=== PATIENT | male | born 1995 | race Caucasian/White ===

== ENCOUNTER 2016-10-12 17:05 | Emergency (ER) | payer MEDICAID ==
[~2016-10-12] VITALS: Ht 175.3 cm; Wt 91.0 kg
[~2016-10-12 17:05] MED LIST: NO MEDS; ONDA4TAB35 PO
[2016-10-12 17:10] VITALS: Ht 175.3 cm; Wt 91.0 kg
--- NOTE | 2016-10-12 17:23 | EN ---
Date/Time of Note Date/Time of Note DATE: 10/12/16 TIME: 17:18 ER Progress Note This is a 21-year-old male presenting to the emergency department complaining of right buttock and low back pain for the past week. Patient states that the pain started in his right buttock region about 1 week ago and then it started to radiate down his leg. This morning when he woke up he started to have severe 8 out of 10 lower back pain with genital numbness, right lower extremity numbness and his left lower extremity is tingling. Patient admits to having bladder incontinence. ROS: 10 systems reviewed and are negative except as per history of present illness. GENERAL: WD/WN, in no apparent distress, non-toxic appearing HENT: NC/AT EYES: Conjunctiva normal NECK: Supple PULM: Normal labored breathing CV: Good capillary refill GI: Non-distended, no guarding BACK: no deformities noted, normal spinal curvature, TTP on lumbar region R>L, tender on lumbar spine midline, positive straight leg raise *Anal wink is not assessed since patient was examined and RME EXT: No clubbing, cyanosis, or edema NEURO: Moves on all fours, sensation intact, normal gait SKIN: intact PSYCH: Normal mood Patient was evaluated RME, I had a concern for cauda equina syndrome therefore I have consulted my supervising physician . Patient will be transferred to ER1 for further evaluation and management and MRI. YANIRA AUGUSTE PA-C Oct 12, 2016 17:23
[2016-10-12] MEDS ORDERED: SOD CHLORIDE 0.9% 1,000 ML IV STA (18:31)
[2016-10-12 18:57] LABS: ADD SCAN DIFF NO
[2016-10-12 18:58] LABS: BASOPHILS % 0.3 % (0.0-2.0); EOSINOPHILS # 0.1 10^3/ul (0.0-0.5); EOSINOPHILS % 0.6 % (0.0-7.0); HEMATOCRIT 47.1 % (42.0-52.0); HEMOGLOBIN 16.6 g/dl (14.0-18.0); LYMPHOCYTES # 1.9 10^3/ul (0.8-2.9); LYMPHOCYTES % 19.4 % (15.0-51.0); MEAN CORPUSCULAR HEMOGLOBIN 29.9 pg (29.0-33.0); MEAN CORPUSCULAR HGB CONC 35.2 g/dl (32.0-37.0); MEAN CORPUSCULAR VOLUME 84.7 fl (82.0-101.0); MEAN PLATELET VOLUME 9.6 fl (7.4-10.4); MONOCYTE # 0.9 10^3/ul (0.3-0.9); MONOCYTES % 8.8 % (0.0-11.0); NEUTROPHIL # 6.9 10^3/ul (1.6-7.5); NEUTROPHILS % 70.7 % (39.0-77.0); PLATELET COUNT 237 10^3/UL (140-415); RED BLOOD COUNT 5.56 10^6/ul (4.70-6.10); RED CELL DISTRIBUTION WIDTH 11.7 % (11.5-14.5); WHITE BLOOD COUNT 9.7 10^3/ul (4.8-10.8)
[2016-10-12 19:12] LABS: INR 0.95; PROTIME 12.7 Sec (12.2-14.2)
[2016-10-12 19:21] LABS: ALANINE AMINOTRANSFERASE 46 IU/L (13-69); ALBUMIN 4.8 g/dl (3.3-4.9); ALBUMIN/GLOBULIN RATIO 1.26; ALKALINE PHOSPHATASE 102 IU/L (42-121); ANION GAP 15 (8-16); ASPARTATE AMINO TRANSFERASE 33 IU/L (15-46); BILIRUBIN,INDIRECT 0.2 mg/dl (0-1.1); BILIRUBIN,TOTAL 0.2 mg/dl (0.2-1.3); BLOOD UREA NITROGEN 14 mg/dl (7-20); CALCIUM 9.7 mg/dl (8.4-10.2); CARBON DIOXIDE 26 mmol/L (21-31); CHLORIDE 101 mmol/L (97-110); CREATININE 1.11 mg/dl (0.61-1.24); GLUCOSE 103 mg/dl (70-220); POTASSIUM 3.8 mmol/L (3.5-5.1); SODIUM 138 mmol/L (135-144); TOTAL PROTEIN 8.6 g/dl (6.1-8.1)
[2016-10-12 19:34] LABS: TROPONIN-I < 0.012 ng/ml (0.00-0.12)
[2016-10-12] MEDS ORDERED: KETOROLAC 15 MG INJ IV STA (20:15)
--- NOTE | 2016-10-12 20:19 | ERA ---
ER Documentation Chief Complaint Date/Time DATE: 10/12/16 TIME: 20:11 Chief Complaint 8/10 lower back pain x 1 week HPI 21-year-old man complains of 1 week of low back pain radiating down both legs and paresthesias to the extremities. He states symptoms began a few days after lifting heavy weights while at the gym. He states over the last days symptoms have gotten worse and is developed weakness to the right foot and cannot feel himself urinate although he denies loss of bowel or bladder control. He denies fevers or chills, no direct trauma to the back, no chest pain or shortness of breath, no difficulty ambulating, no headache or blurry vision. Patient also states he does have a history of low back pain although never as severe as this weeks episode and never associated with paresthesias. ROS All systems reviewed and are negative except as per history of present illness. Medications Home Meds Active Scripts Ondansetron Hcl* (Zofran* ODT) 4 mg -ODT Tab.disper, 4 MG PO Q6 Y for NAUSEA AND /OR VOMITING, #10 TAB Prov:JELENA SOSA DO 10/21/15 Reported Medications [No Meds] No Conflict Check 04/25/12 [None] No Conflict Check 08/12/10 Allergies Allergies: Coded Allergies: No Known Drug Allergies (Verified Allergy, Mild, 10/21/15) PMhx/Soc Anxiety Medical and Surgical Hx: pt denies Medical Hx, pt denies Surgical Hx History of Surgery: No Anesthesia Reaction: No Hx Neurological Disorder: No Hx Respiratory Disorders: No Hx Cardiac Disorders: No Hx Psychiatric Problems: No Hx Miscellaneous Medical Probl: No Hx Alcohol Use: Yes Hx Substance Use: Yes (Possible Mushroom use ) Hx Tobacco Use: No Smoking Status: Never smoker FmHx Family History: No diabetes Physical Exam Vitals Vital Signs Date Time Temp Pulse Resp B/P Pulse Ox O2 Delivery O2 Flow Rate FiO2 10/12/16 18:20 98.7 120 18 158/99 98 Room Air 10/12/16 17:10 98.7 130 18 134/76 99 Physical Exam GENERAL: Well-developed, well-nourished, well-hydrated, in no apparent distress , looks nontoxic in appearance HEENT: Moist mucous membranes, pink conjunctiva, no cervical spine tenderness or step-off deformities, no goiter, no jaundice or icterus, extraocular movements intact without pain. No submandibular induration, and no pharyngeal erythema NEURO: Alert and oriented 3, cranial nerves II through XII intact bilaterally, pupils equal round reactive to light, patient has 4/5 strength to right dorsiflexion versus 5/5 to the left, sensation to the perianal area is intact but the patient states sensation to the right posterior buttock is decreased compared to the left. CARDIAC: Regular rate and rhythm, no murmurs rubs or gallops LUNGS: Clear bilaterally no wheezing crackles or stridor ABDOMEN: Soft nontender, no guarding, no rigidity, no rebound, no psoas sign no obturator sign. Normoactive bowel sounds SKIN: Warm and dry to touch, no abrasions, contusions, or hematomas, no lacerations, no ecchymosis, no target lesions, and without ulcers EXTREMITIES: No clubbing cyanosis or edema, calves are bilaterally symmetrical, no Homans sign, no popliteal cord sign. Distal pulses equal and bilateral PSYCH: Normal affect without agitation or irritability Result Diagram: 10/12/16184410/12/161844 Results 24 hrs Laboratory Tests Test 10/12/16 18:45 White Blood Count 9.710^3/ul Red Blood Count 5.5610^6/ul Hemoglobin 16.6g/dl Hematocrit 47.1% Mean Corpuscular Volume 84.7fl Mean Corpuscular Hemoglobin 29.9pg Mean Corpuscular Hemoglobin Concent 35.2g/dl Red Cell Distribution Width 11.7% Platelet Count 87478^3/UL Mean Platelet Volume 9.6fl Neutrophils % 70.7% Lymphocytes % 19.4% Monocytes % 8.8% Eosinophils % 0.6% Basophils % 0.3% Nucleated Red Blood Cells % 0.0/100WBC Neutrophils # 6.910^3/ul Lymphocytes # 1.910^3/ul Monocytes # 0.910^3/ul Eosinophils # 0.110^3/ul Basophils # 0.010^3/ul Nucleated Red Blood Cells # 0.010^3/ul Prothrombin Time 12.7Sec Prothrombin Time Ratio 1.0 INR International Normalized Ratio 0.95 Sodium Level 138mmol/L Potassium Level 3.8mmol/L Chloride Level 101mmol/L Carbon Dioxide Level 26mmol/L Anion Gap 15 Blood Urea Nitrogen 14mg/dl Creatinine 1.11mg/dl Glucose Level 103mg/dl Calcium Level 9.7mg/dl Total Bilirubin 0.2mg/dl Direct Bilirubin 0.00mg/dl Indirect Bilirubin 0.2mg/dl Aspartate Amino Transf (AST/SGOT) 33IU/L Alanine Aminotransferase (ALT/SGPT) 46IU/L Alkaline Phosphatase 102IU/L Troponin I < 0.012ng/ml Total Protein 8.6g/dl Albumin 4.8g/dl Globulin 3.80g/dl Albumin/Globulin Ratio 1.26 Lipase 75U/L Current Medications Medications (Trade) Dose Ordered Sig/Bre Route PRN Reason Start Time Stop Time Status Last Admin Dose Admin Sodium Chloride (NS) 1,000 ml @ 1,000 mls/hr Q1H STAT IV 10/12/16 18:31 10/12/16 19:30 DC 10/12/16 18:52 Procedures/MDM IV line was established 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 Patient was afebrile. EKG performed, read by me revealed a sinus tachycardia 123 bpm, normal axis, narrow QRS complex, no concerning ST elevations or depressions noted. I administered 1 L normal saline intravenously and Toradol 15 mg IV for his symptoms. I also ordered stat MRI of the lumbar and sacral back to rule out spinal cord compression versus cauda equina syndrome. Results are pending I will follow-up I consulted the on-call neurosurgeon Dr. Pritchard regarding the patient's presentation and symptomatology, he recommended waiting for MRI results to determine how to proceed. MRI results pending and I will follow-up. CBC and electrolytes are normal, liver function tests are normal, troponin was negative, coagulation profile was normal. Neuro critical Care: Time: 37 minutes, this was time separate from other procedures. Treatments/Evaluations: Close monitoring and treatment of unstable vital signs including tachycardia, cardiorespiratory, and neurologic status, while maintaining tight balance of fluid, repeating neurologic examination at the bedside, and bedside reevaluation's. Disposition pending although most likely admission with neurosurgical consultation. 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
--- NOTE | 2016-10-12 21:30 | RADRPT ---
PROCEDURE: MRI lumbar spine with and without contrast CLINICAL INDICATION: Back pain. Evaluate for spinal cord compression. TECHNIQUE: An MRI of the lumbar spine was performed on a 1.5 mavis scanner utilizing the followin g sequences: pre and post contrast sagittal and axial T1 weighted, sagittal and axial T2 weighted, a nd sagittal T2 weighted with fat saturation. 10 ml of Magnevist were given intravenously without com plication. COMPARISON: No prior MRI for comparison.. FINDINGS: There is a normal lordosis of the lumbar spine. No vertebral body subluxation is evident. The verteb ral bodies are normal in height and signal intensity. There is mild congenital spinal canal narrowin g from L2-L3 through L5-S1 levels. The conus medullaris is visible at the T12 level, and is normal in appearance. The postcontrast images show no abnormal enhancement. T12 - L1: The disk is normal in appearance. The central canal and foramina are adequately patent. L1 - L2: The disk is normal in appearance. The central canal and foramina are adequately patent. L2 - L3: The disk is normal in appearance. Mild congenital central canal stenosis without foraminal stenosis. L3 - L4: The disk is normal in appearance. Mild bilateral facet joint arthropathy with small facet joint effusions. Mild congenital central canal stenosis without foraminal stenosis. L4 - L5: The disk is normal in appearance. Moderate hypertrophic facet joint arthropathy with small to moderate facet joint effusions. Mild to moderate central canal stenosis with mild left foramina l stenosis. No significant right foraminal stenosis. L5 - S1: The disk is normal in appearance. The central canal and foramina are adequately patent. IMPRESSION: 1. No evidence of spinal cord or conus medullaris compression, intramedullary signal abnormality, o r pathologic enhancement. 2. 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 3. Mild multilevel facet joint arthropathy most pronounced at L3-L4 and L4-L5 with mild left forami nal stenosis at L4-L5. 4. No disk protrusion at any level. No paraspinal soft tissue abnormality. RPTAT:AAJJ Angel Marquez Physician Date Time Electronically viewed and signed by Angel Marquez Physician on 10/12/2016 21:30 MARILEE/
[2016-10-12 22:22] LABS: ADD UMIC NO; URINE BILIRUBIN (Dip) NEGATIVE (NEGATIVE); URINE BLOOD (Dip) NEGATIVE (NEGATIVE); URINE COLOR LT. YELLOW (YELLOW); URINE GLUCOSE (Dip) NEGATIVE (NEGATIVE); URINE KETONES (Dip) NEGATIVE (NEGATIVE); URINE LEUKOCYTE ESTERASE (Dip) NEGATIVE (NEGATIVE); URINE NITRITE (Dip) NEGATIVE (NEGATIVE); URINE TOTAL PROTEIN (Dip) NEGATIVE (NEGATIVE); URINE UROBILINOGEN (Dip) 0.2 E.U./dL (0.1-1.0)
--- NOTE | 2016-10-12 22:37 | RADRPT ---
PROCEDURE: MRI sacrum with and without contrast CLINICAL INDICATION: Complaining of low back pain times 1 week, paresthesias TECHNIQUE: An MRI of the sacrum with and without contrast was performed. 10 cc of Magnevist was i njected intravenously without complication. There is breathing motion artifact. COMPARISON: MRI of the lumbar spine of 10/12/2016 FINDINGS: No abnormality is seen. No fracture or dislocation is seen. No abnormal signal intensity is seen. No osseous lesion is seen. No definite abnormality of the sacroiliac joints is seen. No soft tissu e abnormality is seen. IMPRESSION: No abnormality seen as noted above. RPTAT: HJES .Gordon Brunner MD, MD Date Time Electronically viewed and signed by .Gordon Brunner MD, on 10/12/2016 22:37 .S/
[2016-10-12 23:09] LABS: BARBITURATES Negative (NEGATIVE); BENZODIAZEPINES Negative (NEGATIVE); CANNABINOIDS Negative (NEGATIVE); COCAINE Negative (NEGATIVE); OPIATES Negative (NEGATIVE)
[2016-10-12] MEDS ORDERED: TRAM50TA2 PO (23:24)
--- NOTE | 2016-10-12 23:27 | QN ---
Documentation Comment MRI of back and sacrum came back with negative results. Discussed with neurosurgeon on-call. Patient stable for outpatient management. No evidence of saddle anesthesia. Repeat neurological testing was essentially normal with no evidence of footdrop or saddle anesthesia. Patient does not complain of bowel or bladder incontinence. Patient is able to urinate of his own accord while here in the ER. ZACK BURNHAM. Oct 12, 2016 23:27
[2016-10-12 23:30] VITALS: BP 135/99; PULSE 102; RESP 18; TEMP 98.7
[2016-10-12] MEDS ORDERED: ACETAMINOPHEN 325 MG TAB PO ONE (23:30)
== END 2016-10-12 23:56 | disposition home or self-care (01) ==
LOC: FTE 17:05 → E/R 23:56
DX: G95.20 Unspecified cord compression (principal); M51.16 Intervertebral disc disorders with radiculopathy, lumbar region; R40.2142 Coma scale, eyes open, spontaneous, at arrival to emergency department; R40.2252 Coma scale, best verbal response, oriented, at arrival to emergency department; R40.2362 Coma scale, best motor response, obeys commands, at arrival to emergency department
CPT/HCPCS: 72158; 72196; 80053; 80307; 81003; 83690; 84484; 85025; 85610; 93005; J7030; Z7610; 36415

== ENCOUNTER 2016-10-31 19:34 | Emergency (ER) | payer MEDICAID ==
[~2016-10-31] VITALS: Ht 175.3 cm; Wt 85.5 kg
[~2016-10-31 19:34] MED LIST changes: +TRAM50TA2 PO
[2016-10-31 20:01] VITALS: Ht 175.3 cm; Wt 85.5 kg
--- NOTE | 2016-10-31 21:43 | RADRPT ---
PROCEDURE: XR Chest. CLINICAL INDICATION: Chest pain after intercourse. TECHNIQUE: PA and Lateral views of the chest were obtained. COMPARISON: Chest x-ray 05/10/2014. FINDINGS: The soft tissues are normal. The bony elements are normal. The heart, cardiomediastinal silhouette and hilar structures are normal. The pulmonary vasculature is normal. There is a left-sided aorta. The lungs are clear. The costophrenic angles are normal. IMPRESSION: 1. Stable chest x-ray with no evidence of active cardiopulmonary disease. RPTAT:AAJJ Physician Norma Date Time Electronically viewed and signed by Physician Norma on 10/31/2016 21:43 PINKY/
[2016-10-31 22:01] VITALS: BP_SYST 142; PULSE 98; RESP 16
--- NOTE | 2016-10-31 22:03 | ERD ---
ER Documentation Chief Complaint Date/Time DATE: 10/31/16 TIME: 21:51 Chief Complaint CWP at 1900 after having intercourse HPI 21-year-old male with a history of acid reflux presenting to the ER with pressure at the bottom of the left side of his chest. This started a few hours ago after having intercourse. Has been a constant, nonradiating pain. 5 out of 10. No associated shortness of breath, dizziness, neck pain, abdominal pain , nausea, or vomiting. Earlier he did have some nausea and dizziness which resolved. He has been belching today and was recently prescribed an acid reflux medicine that he started taking today as well. No family history of cardiac disease. ROS All systems reviewed and are negative except as per history of present illness. Medications Home Meds Active Scripts Tramadol HCl (Tramadol HCl) 50 Mg Tablet, 50 MG PO Q4 Y for PAIN, #20 TAB Prov:ZACK BURNHAM 10/12/16 Ondansetron Hcl* (Zofran* ODT) 4 mg -ODT Tab.disper, 4 MG PO Q6 Y for NAUSEA AND /OR VOMITING, #10 TAB Prov:JELENA SOSA DO 10/21/15 Reported Medications [No Meds] No Conflict Check 04/25/12 [None] No Conflict Check 08/12/10 Allergies Allergies: Coded Allergies: No Known Drug Allergies (Verified Allergy, Mild, 10/31/16) PMhx/Soc Medical and Surgical Hx: pt denies Medical Hx, pt denies Surgical Hx History of Surgery: No Anesthesia Reaction: No Hx Neurological Disorder: No Hx Respiratory Disorders: No Hx Cardiac Disorders: No Hx Psychiatric Problems: No Hx Miscellaneous Medical Probl: No Hx Alcohol Use: Yes Hx Substance Use: Yes (Possible Mushroom use ) Hx Tobacco Use: No Smoking Status: Never smoker FmHx Family History: No diabetes Physical Exam Vitals Vital Signs Date Time Temp Pulse Resp B/P Pulse Ox O2 Delivery O2 Flow Rate FiO2 10/31/16 20:01 99.4 96 18 128/91 98 Physical Exam Const: Well-appearing, no distress, laying comfortably in bed Head: Atraumatic Eyes: Normal Conjunctiva ENT: Normal External Ears, Nose and Mouth. Neck: Full range of motion..~ No meningismus. Resp: No chest wall crepitus, clear to auscultation bilaterally, no wheezing or rales Cardio: Regular rate and rhythm, no murmurs, rubs, gallops Abd: Soft, non tender, non distended. Normal bowel sounds Skin: No petechiae or rashes Back: No midline or flank tenderness Ext: No cyanosis, or edema. 2+ distal pulses, equal bilaterally Neur: Awake and alert and oriented 3, cranial nerves intact, moving all extremities Psych: Normal Mood and Affect Procedures/MDM EKG: Rate/Rhythm: Normal Sinus Rhythm QRS, ST, T-waves: No changes consistent w/ acute ischemia Impression: No evidence of ischemia or arrhythmia Chest x-ray shows no acute abnormalities MDM: Patient is presenting with pressure in the left side of his chest that started while he was having intercourse. He has no associated symptoms. His exam is unremarkable. I have a low suspicion for pneumothorax, pneumomediastinum, aortic dissection, acute coronary syndrome, esophageal rupture, or acute abdomen. Chest x-ray was normal and did not show widened mediastinum. I believe the patient is stable for discharge at this time. I suspect his discomfort may be secondary to his acid reflux as he is belching when I am talking to him. Return precautions were discussed. Patient was discharged in stable condition. Departure Diagnosis: Primary Impression: Chest tightness or pressure NORIS ORDONEZ MD October 31, 2016 22:02
== END 2016-10-31 22:02 | disposition home or self-care (01) ==
LOC: FTE 19:34
DX: R07.89 Other chest pain (principal)
CPT/HCPCS: 71020; 93005; Z7502